=== PATIENT | male | born 1985 | race Caucasian/White ===

== ENCOUNTER 2019-05-24 16:22 | Emergency (ER) | payer OTHER ==
[~2019-05-24] VITALS: Ht 167.6 cm; Wt 81.8 kg
[2019-05-24 16:22] VITALS: BP 159/98
--- NOTE | 2019-05-24 17:38 | REP ---
Clinical: Trauma. Technique: AP, lateral, bilateral oblique views of the right and left fingers. Findings: Right hand demonstrates a comminuted fracture at the distal aspect of the fifth middle phalanx involving the distal interphalangeal joint with overlying soft tissue swelling and laceration. Fracture at the base of the distal phalanx cannot be excluded as well. Left hand demonstrates laceration/soft tissue injuries involving the second and third terminal ligia overlying the distal phalanges without obvious acute fracture. Impression: The bilateral injuries as described above. Electronically Signed by Renny Real MD 05/24/2019 05:29 P
[2019-05-24] MEDS ORDERED: ADACEL/BOOSTRIX VACCINE (DIPHTH/PERTUSS/ACELL/TETANUS)0.5ML SYR (90715) IM ONE (18:30)
[2019-05-24] MEDS ORDERED: LIDOCAINE 2% MDV 20 ML VIAL SC ONE (18:30)
[2019-05-24] MEDS ORDERED: KEFL500C17 PO (20:19)
== END 2019-05-24 20:27 | disposition home or self-care (01) ==
LOC: M ED 16:22
DX: S62.626B Displaced fracture of middle phalanx of right little finger, initial encounter for open fracture (principal); S61.303A Unspecified open wound of left middle finger with damage to nail, initial encounter; S61.305A Unspecified open wound of left ring finger with damage to nail, initial encounter; W26.8XXA Contact with other sharp object(s), not elsewhere classified, initial encounter; Y92.89 Other specified places as the place of occurrence of the external cause; Y99.0 Civilian activity done for income or pay; F17.210 Nicotine dependence, cigarettes, uncomplicated
CPT/HCPCS: 12002; 29125; 73140; 90471; 90715; 96374; 99284; J0690